=== PATIENT | female | born 1970 | race Two or more races ===

== ENCOUNTER 2022-05-31 16:45 | Emergency (ER) | payer OTHER ==
[~2022-05-31] VITALS: Ht 160 cm; Wt 81.6 kg
--- NOTE | 2022-05-31 16:53 | NUR ---
Dr. Saul at bedside for evaluation.
[2022-05-31] MEDS ORDERED: IV NORMAL SALINE 1000 ML BAG IV ONE (17:15)
[2022-05-31 17:20] LABS: HEMATOCRIT 43.7 % (31.2-41.9); MEAN CORPUSCULAR HEMOGLOBIN 28.6 uug (24.7-32.8); PLATELET COUNT (AUTO) 204 K/uL (179-408)
[2022-05-31 17:29] LABS: CARBON DIOXIDE 25 mmol/L (21-32); CHLORIDE 101 mmol/L (98-107); CREATININE 0.6 mg/dL (0.6-1.3); GLUCOSE 135 mg/dL (74-106); POTASSIUM 3.6 mmol/L (3.5-5.1); UREA NITROGEN, BLOOD 9 mg/dL (7-18)
[2022-05-31 17:40] LABS: ALANINE AMINOTRANSFERASE 28 U/L (14-59); ALKALINE PHOSPHATASE 119 U/L (50-136); ASPARTATE AMINOTRANSFERASE 20 U/L (15-37); BILIRUBIN,DIRECT 0.1 mg/dL (0.0-0.2); BILIRUBIN,TOTAL 0.4 mg/dL (0.2-1.0); TOTAL PROTEIN, SERUM 7.8 g/dL (6.4-8.2)
[2022-05-31 18:34] LABS: *BILIRUBIN,URIN NEGATIVE (NEGATIVE); *BLOOD, URINE NEGATIVE (NEGATIVE); *CLARITY,URINE CLEAR (CLEAR); *COLOR,URINE YELLOW (YELLOW); *KETONES,URINE NEGATIVE (NEGATIVE); *UROBILINOGEN,URINE 0.2 E.U./dl (NORMAL); LEUKOCYTE ESTERASE ,URINE NEGATIVE (NEGATIVE); NITRITE, URINE NEGATIVE (NEGATIVE); PH,URINE 5.5 (5.0-8.0); UGLUCOSE NEGATIVE (NEGATIVE)
--- NOTE | 2022-05-31 19:10 | NUR ---
Received report from PHIL Osborn.
--- NOTE | 2022-05-31 20:18 | NUR ---
OBSERVED PT WALKING WITH A STEADY GAIT TO THE RESTROOM.
--- NOTE | 2022-05-31 20:22 | NUR ---
Patient discharged to home in stable condition. A/O x 4. NAD noted. Written and verbal after care instructions given. Patient and daughter verbalized understanding of instructions. Stressed follow up or return to ER for worsening s/s.
[2022-05-31 20:24] VITALS: BP 151/75
== END 2022-05-31 20:20 | disposition home or self-care (01) ==
LOC: ER 17:00
DX: E05.90 Thyrotoxicosis, unspecified without thyrotoxic crisis or storm (principal); E11.9 Type 2 diabetes mellitus without complications; R05.9 Cough, unspecified; Z20.822 Contact with and (suspected) exposure to COVID-19; F41.9 Anxiety disorder, unspecified; R07.89 Other chest pain
CPT/HCPCS: 36415; 71045; 84443; 84480; 84484; 85025; 93005; A4663; J7040